=== PATIENT | male | born 1945 | race Asian ===

== ENCOUNTER → 2016-05-09 | Outpatient (CLI) | payer MEDICARE, OTHER ==
[~2016-05-09] MED LIST: ASPI81 PO; ESOM20CA31 PO; ISOS30TA6 PO; METO-323 PO; MONT10TA21 PO; MULT1TAB PO; NITR.4 SL; PRAV40 PO; SILD25 PO; TELM40 PO
== END | disposition home or self-care (01) ==
LOC: RADPV 10:52
PROVIDERS: ATTEND Internal Medicine
DX: I70.0 Atherosclerosis of aorta (principal)
CPT/HCPCS: 71020

== ENCOUNTER → 2016-11-07 | Outpatient (CLI) | payer MEDICARE, OTHER ==
[~2016-11-07] VITALS: Ht 172.7 cm; Wt 101.5 kg
[~2016-11-07] MED LIST changes: +CETI-260 PO
[2016-11-07 11:50] VITALS: BP 126/76
== END | disposition home or self-care (01) ==
LOC: SRCNTR 11:20
PROVIDERS: ATTEND Internal Medicine Critical Care Medicine
DX: I10 Essential (primary) hypertension (principal); R05 Cough; E78.5 Hyperlipidemia, unspecified
CPT/HCPCS: G0463

== ENCOUNTER → 2016-11-30 | Outpatient (CLI) | payer MEDICARE, OTHER ==
[~2016-11-30] MED LIST changes: -ESOM20CA31 PO; -MONT10TA21 PO
== END | disposition home or self-care (01) ==
LOC: RESP 09:03
PROVIDERS: ATTEND Internal Medicine Critical Care Medicine
DX: J44.9 Chronic obstructive pulmonary disease, unspecified (principal)
CPT/HCPCS: 94010; 94726; 94727; 94729

== ENCOUNTER → 2017-01-04 | Outpatient (CLI) | payer MEDICARE, OTHER ==
[~2017-01-04] VITALS: Ht 172.7 cm; Wt 103.2 kg
[~2017-01-04] MED LIST changes: -CETI-260 PO; +CETI-290 PO; +FLUT16H NASAL; -METO-323 PO; +METO25XL PO; +OMEP20 PO; -PRAV40 PO; +PRAV40TA4 PO
[2017-01-04 13:46] VITALS: BP 107/77
== END | disposition home or self-care (01) ==
LOC: SRCNTR 12:47
PROVIDERS: ATTEND Internal Medicine Critical Care Medicine
DX: J45.909 Unspecified asthma, uncomplicated (principal); I10 Essential (primary) hypertension; E78.5 Hyperlipidemia, unspecified; G47.33 Obstructive sleep apnea (adult) (pediatric)
CPT/HCPCS: G0463

== ENCOUNTER → 2017-05-29 | Outpatient (CLI) | payer MEDICARE, OTHER ==
[~2017-05-29] VITALS: Ht 172.7 cm; Wt 105.5 kg
[2017-05-29 11:40] VITALS: BP 137/70
== END | disposition home or self-care (01) ==
LOC: SRCNTR 11:17
PROVIDERS: ATTEND Internal Medicine Critical Care Medicine
DX: G47.33 Obstructive sleep apnea (adult) (pediatric) (principal); J45.909 Unspecified asthma, uncomplicated; I10 Essential (primary) hypertension; E78.5 Hyperlipidemia, unspecified
CPT/HCPCS: G0463

== ENCOUNTER → 2017-10-11 | Outpatient (CLI) | payer MEDICARE, OTHER ==
[~2017-10-11] VITALS: Ht 172.7 cm; Wt 101.0 kg
[~2017-10-11] MED LIST changes: +ADV250 IH; +BENZ-51 PO
[2017-10-11 11:08] VITALS: BP 126/75
== END | disposition home or self-care (01) ==
LOC: SRCNTR 11:07
PROVIDERS: ATTEND Internal Medicine Critical Care Medicine
DX: E11.9 Type 2 diabetes mellitus without complications (principal); E66.9 Obesity, unspecified; E78.5 Hyperlipidemia, unspecified; M10.9 Gout, unspecified; K86.1 Other chronic pancreatitis; I10 Essential (primary) hypertension; Z85.038 Personal history of other malignant neoplasm of large intestine
CPT/HCPCS: G0463

== ENCOUNTER → 2018-01-16 | Outpatient (CLI) | payer MEDICARE, OTHER ==
[~2018-01-16] VITALS: Ht 172.7 cm; Wt 106.0 kg
[2018-01-16 15:03] VITALS: BP 130/78
== END | disposition home or self-care (01) ==
LOC: SRCNTR 15:00
PROVIDERS: ATTEND Internal Medicine Critical Care Medicine
DX: G47.33 Obstructive sleep apnea (adult) (pediatric) (principal); J45.909 Unspecified asthma, uncomplicated; I10 Essential (primary) hypertension; E78.5 Hyperlipidemia, unspecified
CPT/HCPCS: G0463

== ENCOUNTER → 2018-04-25 | Outpatient (CLI) | payer MEDICARE, OTHER ==
[~2018-04-25] VITALS: Ht 172.7 cm; Wt 102.0 kg
[~2018-04-25] MED LIST changes: +CETI-170 PO; -CETI-290 PO; +TIOT4MIS5 IH
[2018-04-25 13:26] VITALS: BP 140/75
== END | disposition home or self-care (01) ==
LOC: SRCNTR 13:08
PROVIDERS: ATTEND Internal Medicine Critical Care Medicine
DX: E78.5 Hyperlipidemia, unspecified (principal); J44.9 Chronic obstructive pulmonary disease, unspecified; I25.10 Atherosclerotic heart disease of native coronary artery without angina pectoris; I10 Essential (primary) hypertension; E11.9 Type 2 diabetes mellitus without complications
CPT/HCPCS: G0463

== ENCOUNTER → 2019-03-19 | Outpatient (CLI) | payer MEDICARE, OTHER ==
[~2019-03-19] VITALS: Ht 172.7 cm; Wt 106.0 kg
[~2019-03-19] MED LIST changes: -ADV250 IH; -BENZ-51 PO; -CETI-170 PO; +CETI10TA59 PO; -NITR.4 SL; +NITR0.4T52 SL; -PRAV40TA4 PO
[2019-03-20 13:08] VITALS: BP 131/76
== END | disposition home or self-care (01) ==
LOC: SRCNTR 11:30
PROVIDERS: ATTEND Internal Medicine Critical Care Medicine
DX: G47.33 Obstructive sleep apnea (adult) (pediatric) (principal); J45.909 Unspecified asthma, uncomplicated; I10 Essential (primary) hypertension; E78.5 Hyperlipidemia, unspecified
CPT/HCPCS: G0463

== ENCOUNTER → 2020-06-30 | Outpatient (CLI) | payer MEDICARE, OTHER ==
[~2020-06-30] VITALS: Ht 172.7 cm; Wt 109.9 kg
[~2020-06-30] MED LIST changes: +ASPI-1450 PO; -ASPI81 PO; +CETI-450 PO; -CETI10TA59 PO; -ISOS30TA6 PO; +ISOS30TA92 PO
[2020-06-30 10:05] VITALS: BP 134/70
== END | disposition home or self-care (01) ==
LOC: SRCNTR 09:53
PROVIDERS: ATTEND Internal Medicine Critical Care Medicine
DX: I10 Essential (primary) hypertension (principal); J45.909 Unspecified asthma, uncomplicated; E78.5 Hyperlipidemia, unspecified; G47.33 Obstructive sleep apnea (adult) (pediatric); E66.9 Obesity, unspecified
CPT/HCPCS: G0463

== ENCOUNTER → 2020-09-09 | Outpatient (CLI) | payer MEDICARE, OTHER | END | disposition home or self-care (01) | LOC: RADPV 10:39 | PROVIDERS: ATTEND Internal Medicine Critical Care Medicine | DX: I51.7 Cardiomegaly (principal); I70.0 Atherosclerosis of aorta; G47.33 Obstructive sleep apnea (adult) (pediatric); M47.814 Spondylosis without myelopathy or radiculopathy, thoracic region; R07.89 Other chest pain | CPT/HCPCS: 71046 ==

== ENCOUNTER → 2020-09-09 | Outpatient (CLI) | payer MEDICARE, OTHER ==
[~2020-09-09] VITALS: Ht 170.2 cm; Wt 111.7 kg
[2020-09-09 11:34] VITALS: BP 125/65
== END | disposition home or self-care (01) ==
LOC: SRCNTR 10:48
PROVIDERS: ATTEND Internal Medicine Critical Care Medicine
DX: I10 Essential (primary) hypertension (principal); E78.5 Hyperlipidemia, unspecified; E66.01 Morbid (severe) obesity due to excess calories; J45.909 Unspecified asthma, uncomplicated; G47.33 Obstructive sleep apnea (adult) (pediatric); Z79.82 Long term (current) use of aspirin; Z79.899 Other long term (current) drug therapy; Z98.890 Other specified postprocedural states
CPT/HCPCS: G0463